=== PATIENT | male | born 1985 | race Caucasian/White ===

== ENCOUNTER 2022-03-18 14:09 | Outpatient (REF) | payer OTHER, SELFPAY ==
--- NOTE | ~2022-03-18 | US_ITS ---
EXAMINATION: US VENOUS ULTRASOUND WITH DOPPLER LOWER EXTREMITY, RIGHT CLINICAL INFORMATION: Acute embolism and thrombosis of the deep veins of the right leg COMPARISON: None TECHNIQUE: Ultrasound of the deep veins is performed from the hip to the calf with compression sonography and color and pulse Doppler assessment. Spectral analysis with color-flow imaging is performed. FINDINGS: There is normal venous compression and respiratory variation and augmented flow. The visualized common femoral vein, superficial femoral vein, profunda femoral vein, popliteal vein, and the trifurcation region shows no evidence of deep venous thrombosis. There is no significant popliteal fossa cyst. If the patient's symptoms persist, followup ultrasound in 5 days 7 days might be of value to exclude proximal propagation from a non-visualized calf vein. US/US venous duplex LE RT IMPRESSION: No DVT demonstrated in the right lower extremity.
== END 2022-03-18 14:10 | disposition home or self-care (01) ==
LOC: HO.US 14:09
PROVIDERS: PCP Family Medicine; Visit Provider Family Medicine
DX: I82.401 Acute embolism and thrombosis of unspecified deep veins of right lower extremity (principal)
CPT/HCPCS: 93971

== ENCOUNTER 2022-07-15 12:24 | Outpatient (REF) | payer OTHER, SELFPAY ==
[2022-07-15 17:01] LABS: Anion Gap 14 (12-20); Blood Urea Nitrogen 20 mg/dL (9-16); Calcium 9.6 mg/dL (8.4-10.2); Carbon Dioxide 28 mmol/L (22-29); Chloride 103 mmol/L (96-108); Cholesterol 111 mg/dL; Estimated Glomerular Filt Rate > 60; Glucose Random 87 mg/dL (60-115); HDL Cholesterol 28 mg/dL; LDL Cholesterol Calculated 51 mg/dl; Potassium 4.9 mmol/L (3.3-5.1); Sodium 140 mmol/L (135-145); Triglycerides 162 mg/dL
== END 2022-07-15 12:25 | disposition home or self-care (01) ==
LOC: HO.WFDLDS 12:24
PROVIDERS: Visit Provider Family Medicine
DX: Z00.00 Encounter for general adult medical examination without abnormal findings (principal)
CPT/HCPCS: 36415; 80048; 80061

== ENCOUNTER → 2022-08-06 14:09 | Outpatient (BNVA) | payer OTHER, SELFPAY | PROVIDERS: PCP Family Medicine; Visit Provider Nurse Practitioner Family ==

== ENCOUNTER 2022-09-10 16:44 | Outpatient (AMB) | payer OTHER, SELFPAY ==
--- NOTE | 2022-09-10 16:38 | A.OFFPC_ITS ---
Intake Visit Reasons: f/u HLD and labs Intake Note: Patient is following up on labs today. Allergies No Known Allergies Allergy (Verified 09/10/22 16:40) Tobacco use date assessed: 09/10/22 Dental Screening Dental Screen Date: 09/10/22 Did you have a dental visit in the last 12 months?: Yes Did you have a dental problem in the last 6 months where you did not have access to dental care?: No Was dental information given to patient?: No HPI f/u HLD and labs HPI Details 37 y/o male presents to f/u HLD and labs. Labs were drawn 07/15/22. Reviewed labs with pt. Triglycerides 162. TC 111. LDL 51. HDL low aat 28. He is on artovastatin 40mg daily. He reports he has not been exercising much. [facility] Medical History High cholesterol Tear of medial meniscus of right knee Surgical History History of hernia surgery [place] teeth removed Social History Housing: House Patient Tobacco Use Status: Never used Tobacco e-Cigarette/Vaping Use: Never Used Second Hand Smoke Exposure: No service: No Current occupational status: employed Current occupational exposures/hazards: No Cognitive needs: No Hearing needs: No Vision needs: No Questionnaire Thrive Questionnaire Date Thrive assessed: 04/09/22 DERIK-7 AMB Questionnaire DERIK-7 Date DERIK - 7 assessed: 04/09/22 Source: Developed by Drs. Florencio Jack, Mendy Blackwell, Zev Sweeney and colleagues, with an educational miguel a from [employer]. Review of Systems Const Denies chills, Denies fatigue, Denies fever(s), Denies headache(s) and Denies weakness ENT Denies dizziness and Denies headache(s) Card Denies dyspnea Resp Denies cough, Denies dyspnea, Denies wheezing and Denies other (shortness of breath) Musc Denies numbness and Denies tingling Neuro Denies dizziness, Denies headache(s), Denies numbness, Denies tingling and Denies weakness Psych Denies anxiety and Denies depression Endo Denies fatigue Aller/Immun Denies wheezing Physical exam (Primary Care) Tobacco/Smoking Status: Tobacco use Status Tobacco use date assessed 09/10/22 09/10/22 16:42 Patient Tobacco Use Status Never used Tobacco 09/10/22 16:42 e-Cigarette/Vaping Use Never Used 09/10/22 16:42 Thrive Assessment: Date of Thrive Assessment Date Thrive assessed 04/09/22 09/10/22 16:42 Telehealth Telehealth Location of provider rendering services: practice address Location of patient: address on file Patient Identification confirmed using: Name, : Yes Telehealth method: voice only Patient verbally consented to treatment: Yes Patient verbally consented to billing insurance company: Yes Patient informed of any privacy concerns related to visit: Yes Minutes spent on Phone/Video with Pt.: 5 Assessment and Plan Assessment & Plan (1) Hyperlipidemia: Code(s): E78.5 - Hyperlipidemia, unspecified Plan: LDL cholesterol much improved and his triglycerides have improved significantly as well though still above goal of less than 150 HDL has dropped considerably and is too low. He notes that he has had a significant decrease in exercise with the of his child. He will work at a diet low in saturated fats and cholesterol and will try to get more exercise regularly. He will decrease his atorvastatin from 40 mg daily to 20 mg daily Will repeat lipids prior to his next visit in about 3 months (2) Low HDL (under 40): Code(s): E78.6 - Lipoprotein deficiency Plan: As above Orders: Orders Basic Metabolic Panel Fasting Today E78.6 - Lipoprotein deficiency Lipid Panel Today E78.6 - Lipoprotein deficiency, Z00.00 - Encounter for general adult medical examination without abnormal findings Medications: Changed From atorvastatin 40 mg PO DAILY 90 days 90 tabs 3RF To atorvastatin 20 mg PO DAILY 90 days 90 tabs 3RF Coding Level of Care Code Tele Est Pt Level 2 (92707) Diagnoses Hyperlipidemia E78.5 Low HDL (under 40) E78.6
== END 2022-09-10 16:55 | disposition home or self-care (01) ==
LOC: HO.HMGFM 16:44
PROVIDERS: PCP Family Medicine; Visit Provider Family Medicine
DX: E78.5 Hyperlipidemia, unspecified (principal); E78.6 Lipoprotein deficiency
CPT/HCPCS: 99441

== ENCOUNTER 2022-09-17 15:15 | Outpatient (AMB) | payer OTHER, SELFPAY ==
--- NOTE | 2022-09-17 15:29 | A.OFFVIS_ITS ---
Intake Intake Visit Reasons: vasectomy Intake Note: Patient is present for Vasectomy Antibiotic Allergies: none Blood Thinners: None Allergies No Known Allergies Allergy (Verified 09/17/22 15:32) HPI HPI Comments History of Present Illness Details Jose G is a pleasant 37 year old male patient of Dr. Landa. He presents to the office today for - vasectomy procedure Vasectomy procedure The patient presents for vasectomy procedure.? He is currently He has fathered -?3 child, with a single partner The youngest child is - 2 months old His partner is aware and permissive for a vasectomy Current form of control is none. 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 [facility] Medical History High cholesterol Tear of medial meniscus of right knee Surgical History History of hernia surgery [place] teeth removed Social History Housing: House Patient Tobacco Use Status: Never used Tobacco e-Cigarette/Vaping Use: Never Used Second Hand Smoke Exposure: No service: No Current occupational status: employed Current occupational exposures/hazards: No Cognitive needs: No Hearing needs: No Vision needs: No Review of Systems Const Denies chills and Denies fever(s) Card Reports no additional complaints and Denies syncope Resp Denies cough GI Denies abdominal pain and Denies heartburn Reports as per HPI and Denies change in libido Neuro Denies syncope Psych Denies change in libido Endo Denies change in libido Physical Exam Const General: cooperative, healthy appearing, comfortable and no acute distress Orientation/consciousness: patient oriented x3 HEENT Face and sinus: Yes normal facial exam Mouth: moist mucous membranes Neck Neck: Yes normal visual inspection, Yes full ROM and Yes trachea midline Chest Chest palpation & inspection: normal inspection of the chest Resp Effort & Inspection: normal respiratory effort, able to speak in complete sentences and no respiratory distress GI Inspection: Yes normal to inspection Back/Spine/Pelvis Cervical Spine: normal cervical lordosis Thoracic/Lumbar Spine: thoracic and lumbar spine normal to inspection Skin General skin exam: no rashes or lesions noted Neuro General: patient oriented x3, gait normal, tone normal and moves all extremities Extrem General: Yes normal to inspection and Yes capillary refill normal Office Procedures Vasectomy Details: Preoperative diagnosis: Anxiety regarding Postoperative diagnosis: Anxiety regarding unplanned Procedure: Bilateral vasectomy Informed consent had been completed. Preoperative and postoperative instructions were provided to the patient. The patient has transportation to home identified at the completion of the procedure. Anti-anxiolytic prescription medication had been taken after consent verification and all questions answered. Tylenol with Codeine pain medication was also provided. The penis was elevated using a rubber band that was attached to the patient's shirt. Both vasa were palpated through the skin using a 3 finger technique and the penoscrotal junction was prepped with Betadine. After Betadine application the left vas was elevated using a 3 finger grasping technique. 1% lidocaine was used to create a subdermal bubble. Approximately 2 minutes were allowed to for local anesthetic uptake. Further anesthetic was then advanced using the 25-gauge needle along the vasa in a proximal fashion. Using the sharp spreading instrument the scrotum was spread longitudinally in line with the vasa. The vasa was elevated from the scrotum using a ring clamp. Care was taken to elevate the superior portion of the vas. Using the sharp spreading instrument the vasal sheath was removed from the covering of this segment of the vas. A fresh knife blade was used to partially divide the vasal sheath and to strip the vasal sheath from the vasa. The vasa was grasped with an Addson forcep and elevated from the incision. The ring clamp was placed so it grasped the elevated vas. The vasal sheath was dissected from the vaas in a proximal and distal fashion. This allowed the blood vessels of the vasa to retract from the vasa. Using the battery-powered cautery a partial division was made in the proximal vas. The battery-powered cautery was used to cauterize the proximal end of the vas. This was then cut and allowed to retract into the vasal sheath. A clip was placed on the vasal sheath to create a fascial interposition. The distal portion of the vas was then cut in order to obtain a segment of vasa. The vasa were allowed to retract back into the scrotum. A small snap was then used to approximate the skin edges. A similar procedure was repeated on the right side. He tolerated the procedure well. Triple antibiotic was applied. A gauze was applied. An ice pack was applied to assist with minimizing swelling. Postoperative instructions were confirmed. He understands the need to continue to use control methods. A semen sample should be brought for inspection under the microscope in 10-12 weeks. CPT 46408 Vasectomy performed by: Giovany Melo [id number] - Vasectomy Coding Level of Care Code Procedure Only Diagnoses CPT Codes Office Procedure - CPT: 98290 - Vasectomy ([id number])
== END 2022-09-17 16:11 | disposition home or self-care (01) ==
PROVIDERS: PCP Family Medicine; Visit Provider Urology
DX: Z30.2 Encounter for sterilization (principal)
CPT/HCPCS: 55250

== ENCOUNTER → 2022-09-17 15:15 | Outpatient (BNVA) | payer OTHER, SELFPAY | PROVIDERS: PCP Family Medicine; Visit Provider Urology | DX: F41.8 Other specified anxiety disorders (principal); Z30.2 Encounter for sterilization; Z30.09 Encounter for other general counseling and advice on contraception | CPT/HCPCS: 55250 ==

== ENCOUNTER 2022-12-12 13:30 | Outpatient (AMB) | payer OTHER, SELFPAY ==
--- NOTE | 2022-12-12 13:42 | MHC.OFFVIS ---
Intake Intake Visit Reasons: 12w/seman analysis Intake Note: Patient is present for Vasectomy Follow up Semen Analysis Antibiotic Allergies: none Blood Thinners: None Allergies No Known Allergies Allergy (Verified 12/12/22 13:42) HPI HPI Comments History of Present Illness Details Jose G is a pleasant 37 year old male patient of Dr. Landa. He presents to the office today for - vasectomy follow-up Minimal issues No pain No sperm seen on high-power field evaluation Vasectomy procedure The patient presents for vasectomy procedure.? He is currently He has fathered -?3 child, with a single partner The youngest child is - 2 months old His partner is aware and permissive for a vasectomy Current form of control is none. 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 [facility] Medical History High cholesterol Tear of medial meniscus of right knee Surgical History [place] teeth removed History of hernia surgery Social History Housing: House Patient Tobacco Use Status: Never used Tobacco e-Cigarette/Vaping Use: Never Used Second Hand Smoke Exposure: No service: No Current occupational status: employed Current occupational exposures/hazards: No Cognitive needs: No Hearing needs: No Vision needs: No Review of Systems Const Denies chills and Denies fever(s) Card Reports no additional complaints and Denies syncope Resp Denies cough GI Denies abdominal pain and Denies heartburn Reports as per HPI and Denies change in libido Neuro Denies syncope Psych Denies change in libido Endo Denies change in libido Physical Exam Const General: cooperative, healthy appearing, comfortable and no acute distress Orientation/consciousness: patient oriented x3 HEENT Face and sinus: Yes normal facial exam Mouth: moist mucous membranes Neck Neck: Yes normal visual inspection, Yes full ROM and Yes trachea midline Chest Chest palpation & inspection: normal inspection of the chest Resp Effort & Inspection: normal respiratory effort, able to speak in complete sentences and no respiratory distress GI Inspection: Yes normal to inspection Back/Spine/Pelvis Cervical Spine: normal cervical lordosis Thoracic/Lumbar Spine: thoracic and lumbar spine normal to inspection Skin General skin exam: no rashes or lesions noted Neuro General: patient oriented x3, gait normal, tone normal and moves all extremities Extrem General: Yes normal to inspection and Yes capillary refill normal Assessment & Plan Assessment & Plan (1) Anxiety about health: Code(s): F41.8 - Other specified anxiety disorders Plan PRN Patient Instructions: Imaging studies, laboratory and physical exam results were discussed and reviewed in detail. No major barriers to patient understanding were identified. An opportunity to ask questions regarding the treatment plan was provided. All questions were answered. The patient expressed understanding and agreement with the above treatment plan. The patient is aware they should contact our office by phone for worsening of their current condition or the appearance of new urologic symptoms. Compliance is encouraged with any medications and followup testing that is ordered. It is a privilege to participate in the urologic care of your patient. If you have any questions or concerns regarding treatment for the above conditions, or other urologic issues, please do not hesitate to contact me. The office telephone contact is [phone]. This note is constructed using voice recognition software. While every effort has been made to ensure accuracy biomedical equipment support specialist errors may have been included. Yours sincerely, Dr Giovany Melo MD, [facility] - Urology Providers of Expert, Compassionate Care for the Genitourinary System Coding Level of Care Code Est Pt Level 3 (51538) Diagnoses Anxiety about health F41.8
== END 2022-12-12 13:55 | disposition home or self-care (01) ==
PROVIDERS: PCP Family Medicine; Visit Provider Urology
DX: F41.8 Other specified anxiety disorders (principal)
CPT/HCPCS: 99024

== ENCOUNTER → 2022-12-12 13:30 | Outpatient (BNVA) | payer OTHER, SELFPAY | PROVIDERS: PCP Family Medicine; Visit Provider Urology ==

== ENCOUNTER 2022-12-18 11:18 | Outpatient (REF) | payer OTHER, SELFPAY ==
[2022-12-18 14:58] LABS: TSH reflex Free T4 1.56 uIU/mL (0.32-4.0)
[2022-12-18 15:11] LABS: Anion Gap 13 (12-20)
[2022-12-18 15:16] LABS: Alanine Aminotransferase 64 U/L (0-40); Albumin Level 4.5 g/dL (3.5-5.0); Alkaline Phosphatase 75 U/L (39-117); Aspartate Amino Transferase 33 U/L (5-37); Bilirubin Total 0.8 mg/dL (0.0-1.0); Blood Urea Nitrogen 19 mg/dL (9-16); Calcium 9.9 mg/dL (8.4-10.2); Carbon Dioxide 29 mmol/L (22-29); Chloride 103 mmol/L (96-108); Cholesterol 138 mg/dL (<200); Estimated Glomerular Filt Rate > 60; Glucose Fasting 80 mg/dL (60-99); HDL Cholesterol 31 mg/dL (>40); LDL Cholesterol Calculated 53 mg/dL (<100); Potassium 4.9 mmol/L (3.3-5.1); Sodium 140 mmol/L (135-145); Total Protein 7.5 g/dL (6.5-8.0); Triglycerides 272 mg/dL (<150)
[2022-12-19 07:43] LABS: Syphilis Screen Nonreactive (Nonreactive)
[2022-12-19 08:19] LABS: HBc Num1 0.07 S/CO (0.00-0.79); HBsAGNum1 0.42 S/CO (0.00-0.99); HIV AB/AG Nonreactive (Nonreactive); HIV Num 1 0.05 S/CO (0.00-0.99); Hepatitis B Core Antibody Nonreactive (Nonreactive); Hepatitis B Surface Antigen Negative (Negative); ~HepC Num1 0.03 S/CO (0.00-0.79); ~Hepatitis B Surface Antibody REACTIVE (Nonreactive); ~Hepatitis C Antibody Nonreactive (Nonreactive)
== END 2022-12-18 11:19 | disposition home or self-care (01) ==
LOC: HO.WFDLDS 11:18
PROVIDERS: Visit Provider Family Medicine
DX: Z00.00 Encounter for general adult medical examination without abnormal findings (principal); Z11.4 Encounter for screening for human immunodeficiency virus [HIV]; Z20.2 Contact with and (suspected) exposure to infections with a predominantly sexual mode of transmission
CPT/HCPCS: 36415; 80053; 80061; 84443; 86704; 86706; 86780; 86803; 87340; 87389

== ENCOUNTER 2022-12-22 10:40 | Outpatient (AMB) | payer OTHER, SELFPAY ==
[2022-12-22 10:44] VITALS: BP 122/82; PULSE 70; O2SAT 98; BMI 29.1
--- NOTE | 2022-12-22 10:44 | A.OFFPC_ITS ---
Vital Signs 12/22/22 10:44 Height 5 ft 10 in Weight 203 lb BMI 29.1 BP 122/82 Blood Pressure Location Lt brachial Position Sitting Pulse 70 Pulse Source Pulse Oximeter Pulse Oximetry (%) 98 Oxygen Delivery Method Room Air Intake Visit Reasons: f/u HLD and low HDL Intake Note: Patient is to follow up on cholesterol bloodwork. Allergies No Known Allergies Allergy (Verified 12/22/22 10:46) Tobacco use date assessed: 12/22/22 Dental Screening Dental Screen Date: 12/22/22 Did you have a dental visit in the last 12 months?: Yes Did you have a dental problem in the last 6 months where you did not have access to dental care?: No Was dental information given to patient?: Patient has dentist HPI f/u HLD and low HDL HPI Details 37 y/o male presents to f/u HLD and low HDL. Labs were drawn 12/18/22. Reviewed labs with pt. Triglycerides 272. TC 138. LDL 53. HDL low at 31. He is on artovastatin 20mg daily. 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 Current occupational exposures/hazards: No Cognitive needs: No Hearing needs: No Vision needs: No Questionnaire Thrive Questionnaire Date Thrive assessed: 04/09/22 DERIK-7 AMB Questionnaire DERIK-7 Date DERIK - 7 assessed: 04/09/22 Source: Developed by Drs. Florencio Jack, Mendy Blackwell, Zev Sweeney and colleagues, with an educational miguel a from [employer]. Review of Systems Const Denies chills, Denies fatigue, Denies fever(s), Denies headache(s) and Denies weakness ENT Denies dizziness and Denies headache(s) Card Denies chest pain, Denies lightheadedness, Denies dyspnea and Denies other (Palpitations) Resp Denies cough, Denies dyspnea, Denies wheezing and Denies other ( shortness of breath) Musc Denies numbness and Denies tingling Neuro Denies dizziness, Denies headache(s), Denies numbness, Denies tingling, Denies paresthesias and Denies weakness Psych Denies anxiety and Denies depression Endo Denies fatigue Aller/Immun Denies wheezing Physical exam (Primary Care) Vital Signs: Last Vital Signs Pulse 70 12/22/22 10:44 BP 122/82 12/22/22 10:44 Pulse Ox 98 12/22/22 10:44 Oxygen Delivery Method Room Air 12/22/22 10:44 BMI result Body Mass Index 29.1 Tobacco/Smoking Status: Tobacco use Status Tobacco use date assessed 12/22/22 12/22/22 10:51 Patient Tobacco Use Status Never used Tobacco 12/22/22 10:51 e-Cigarette/Vaping Use Never Used 12/22/22 10:51 Thrive Assessment: Date of Thrive Assessment Date Thrive assessed 04/09/22 12/22/22 10:51 Const General: no acute distress and well developed Nutritional Appearance: well nourished Orientation/consciousness: patient oriented x3 HENMT Head: Yes normocephalic and Yes atraumatic Eyes General: appearance normal, both eyes and all related structures Pupils: Equal, round and reactive pupils present EOM: EOMs intact bilaterally Resp Effort & Inspection: normal respiratory effort Auscultation: clear to auscultation bilaterally Cardio Rate: regular rate Rhythm: regular rhythm Heart sounds: S1 normal heart sound present, S2 normal heart sound present, no gallops, no murmurs and no rubs Neuro General: patient oriented x3 and gait normal Cranial nerves: Yes Equal, round and reactive pupils present Psych Affect: normal affect Assessment and Plan Assessment & Plan (1) Hyperlipidemia: Code(s): E78.5 - Hyperlipidemia, unspecified Plan: LDL?cholesterol?controlled?but?HDL?is?too?low?and?his?triglycerides?are?too?high . Try?switching?from?atorvastatin?to?rosuvastatin Follow-up?on?this?in?about?3?months (2) Low HDL (under 40): Code(s): E78.6 - Lipoprotein deficiency Plan: Also?encouraged?increase?in?exercise?and?he?is?working?on?this. (3) Immunization counseling: Code(s): Z71.85 - Encounter for immunization safety counseling Plan: Due?for?flu?shot Ordered Medications: New rosuvastatin 10 mg PO DAILY 30 tabs 2RF 30 days Coding Level of Care Code Est Pt Level 4 (45039) Diagnoses Hyperlipidemia E78.5 Low HDL (under 40) E78.6 Immunization counseling Z71.85
--- NOTE | 2022-12-23 08:22 | A.OFFPC_ITS ---
Vital Signs 12/22/22 10:44 Height 5 ft 10 in Weight 203 lb BMI 29.1 BP 122/82 Blood Pressure Location Lt brachial Position Sitting Pulse 70 Pulse Source Pulse Oximeter Pulse Oximetry (%) 98 Oxygen Delivery Method Room Air Intake Visit Reasons: f/u HLD and low HDL Allergies No Known Allergies Allergy (Verified 12/22/22 10:46) Tobacco use date assessed: 12/22/22 [facility] Medical History High cholesterol Tear of medial meniscus of right knee Surgical History [place] teeth removed History of hernia surgery Social History Housing: House Patient Tobacco Use Status: Never used Tobacco e-Cigarette/Vaping Use: Never Used Second Hand Smoke Exposure: No service: No Current occupational status: employed 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 Current occupational exposures/hazards: No Cognitive needs: No Hearing needs: No Vision needs: No Questionnaire Thrive Questionnaire Date Thrive assessed: 04/09/22 DERIK-7 AMB Questionnaire DERIK-7 Date DERIK - 7 assessed: 04/09/22 Source: Developed by Drs. Florencio Jack, Mendy Blackwell, Zev Sweeney and colleagues, with an educational miguel a from [employer]. Physical exam (Primary Care) Vital Signs: Last Vital Signs Pulse 70 12/22/22 10:44 BP 122/82 12/22/22 10:44 Pulse Ox 98 12/22/22 10:44 Oxygen Delivery Method Room Air 12/22/22 10:44 BMI result Body Mass Index 29.1 Tobacco/Smoking Status: Tobacco use Status Tobacco use date assessed 12/22/22 12/22/22 10:51 Patient Tobacco Use Status Never used Tobacco 12/22/22 10:51 e-Cigarette/Vaping Use Never Used 12/22/22 10:51 Thrive Assessment: Date of Thrive Assessment Date Thrive assessed 04/09/22 12/22/22 10:51 Office Procedures Flu Questionnaire Does the patient have a severe egg allergy?: No Does the patient have severe life threatening allergies?: No Does the patient have a fever or illness today?: No Has the patient ever had Guillain-[place] Syndrome?: No Has the patient ever had any past reaction to a flu shot?: No Immunizations flu vacc [id number] 6mos up(PF) 60 mcg(15 mcgx4)/0.5 mL IM syringe Performing Provider: Long Landa MD Performing Location: [facility] Administered by: Ro Alejo RN on 12/22/22 12:25 Dose Route Admin Location Dispensed Lot Number Expiration Date NDC Ad Operations Specialist 0.5 mL IM Left Deltoid 0.5 mL [id number] 08/30/23 19940-706-35 [employer] VIS Given Date VIS Provided VIS Publication Date 12/22/22 Single Vaccine 20 Eligibility Eligibility Date Funding Source Not [facility] Eligible 12/22/22 Private Assessment and Plan Assessment & Plan (1) Hyperlipidemia: Code(s): E78.5 - Hyperlipidemia, unspecified (2) Low HDL (under 40): Code(s): E78.6 - Lipoprotein deficiency (3) Immunization counseling: Code(s): Z71.85 - Encounter for immunization safety counseling Orders: Orders Comprehensive [place]. Panel Fast 12/22/22 E78.1 - Pure hyperglyceridemia, Z00.00 - Encounter for general adult medical examination without abnormal findings Lipid Panel 12/22/22 E78.1 - Pure hyperglyceridemia, Z00.00 - Encounter for general adult medical examination without abnormal findings Influenza [id number] Immunization 12/22/22 Z23 - Encounter for immunization Medications: New rosuvastatin 10 mg PO DAILY 30 tabs 2RF 30 days Coding Diagnoses Hyperlipidemia E78.5 Low HDL (under 40) E78.6 Immunization counseling Z71.85
== END 2022-12-22 11:14 | disposition home or self-care (01) ==
PROVIDERS: PCP Family Medicine; Visit Provider Family Medicine
DX: Z23 Encounter for immunization (principal)
CPT/HCPCS: 90471; 90686; 99214

== ENCOUNTER 2023-08-20 10:30 | Outpatient (REF) | payer OTHER, SELFPAY ==
[2023-08-20 12:22] LABS: Alanine Aminotransferase 46 U/L (0-40); Albumin Level 4.5 g/dL (3.5-5.0); Alkaline Phosphatase 73 U/L (39-117); Anion Gap 11 (12-20); Aspartate Amino Transferase 24 U/L (5-37); Bilirubin Total 0.8 mg/dL (0.0-1.0); Blood Urea Nitrogen 14 mg/dL (9-16); Calcium 9.4 mg/dL (8.4-10.2); Carbon Dioxide 27 mmol/L (22-29); Chloride 107 mmol/L (96-108); Cholesterol 120 mg/dL (<200); Estimated Glomerular Filt Rate > 60; Glucose Fasting 94 mg/dL (60-99); HDL Cholesterol 30 mg/dL (>40); LDL Cholesterol Calculated 76 mg/dL (<100); Potassium 4.2 mmol/L (3.3-5.1); Sodium 141 mmol/L (135-145); Total Protein 7.1 g/dL (6.5-8.0); Triglycerides 71 mg/dL (<150)
== END 2023-08-20 10:31 | disposition home or self-care (01) ==
LOC: HO.WFDLDS 10:30
PROVIDERS: Visit Provider Family Medicine
DX: Z00.00 Encounter for general adult medical examination without abnormal findings (principal); E78.6 Lipoprotein deficiency; E78.1 Pure hyperglyceridemia
CPT/HCPCS: 36415; 80053; 80061

== ENCOUNTER 2024-12-26 13:06 | Outpatient (AMB) | payer OTHER, SELFPAY ==
--- NOTE | 2024-12-26 13:12 | A.OFFPC_ITS ---
Vital Signs 12/26/24 13:15 Height 5 ft 10 in Weight 204 lb 2 oz BMI 29.3 BP 138/80 Blood Pressure Location Rt brachial Position Sitting Respiration 14 Pulse 76 Pulse Source Pulse Oximeter Temp 97.3 F Temp Source Oral Pulse Oximetry (%) 98 Oxygen Delivery Method Room Air Intake Visit Reasons: Annual Physical Intake Note: CPE. Patient wants to discuss family history. Medical Logistics Specialist Required: No Allergies No Known Allergies Allergy (Verified 12/26/24 13:43) Medication List - Last Reconciled 12/26/24 by Kassidy Garcia, RANCH COOK- cholecalciferol (vitamin D3) 50 mcg PO DAILY telzebqp-bja-mfvga-vit K-lycop 400-20-300 mcg tabs PO rosuvastatin 10 mg PO DAILY 30 days Tobacco use date assessed: 12/26/24 Dental Screening Dental Screen Date: 12/26/24 Did you have a dental visit in the last 12 months?: Yes Did you have a dental problem in the last 6 months where you did not have access to dental care?: No Was dental information given to patient?: Patient has dentist HPI HPI Comments History of Present Illness Details 39 y/o M wiht HLD, Vit D def, SAXMAN, fhx c olon ca (PGM), Fhx of aortic aneurysm (Dad), hx of provoked DVT RLE, chronic constipation s/p vasectomy Past Surgical History - Right knee meniscus cleanup (December 2021) - Vasectomy - [place] teeth removal - Hernia repair Family History - Father: Aortic aneurysm (hereditary, l ocated in the heart). - Paternal grandmother: Colon cancer. Social History - Employment: Works at [employer]. - Family: Has three children, all are we ll. - Substance Use: Denies smoking. - Exercise: Does not have a formal exerc ise routine; was counseled on achieving 30 minutes of daily activity to improve HDL cholesterol. - Diet: Takes Metamucil for constipation . Health Maintenance: Tdap 2024 Flu 12/26/24 Specialists Derm 09/2024 History of Present Illness The patient is a 39-year-old male presenting for a complete physical exam & to est care Previous PCP Dr Argueta records reviewed; last visit 2022 Hyperlipidemia: - The patient has a history of hyperlipi demia and is currently taking rosuvastatin. - A review of labs from 2022 and 2023 sh ows improvement with medication. His triglycerides decreased from 272 to 71, and total cholesterol from 138 to 120. - His LDL was 53 in 2022 and 76 in 2023, both within the goal range. - His HDL, however, remains low, measuri ng 31 in 2022 and 30 in 2023. History of Deep Vein Thrombosis, RLE: - The patient had a provoked deep vein t hrombosis (DVT) in his right leg in December 2021. - The clot occurred shortly after a meni scus cleanup surgery, while he was immobile and resting with his leg elevated. - He was treated with a blood thinner fo r six months and has had no subsequent issues. History of recurrent otitis media: - The patient experienced a period of co nstant ear infections, which he believes contributed to decreased hearing in his left ear. - The infections persisted from March to April of one year, and he had difficulty hearing during that time. - The condition resolved during the summ er, and his hearing is no longer bothering him. Constipation: - The patient reports a long-standing hi story of not being regular and has been taking Metamucil for this issue for many years, starting around 2005. - He reports normal bowel and urinary fu nction while taking Metamucil. Family History of Aortic Aneurysm: - The patient's father has a hereditary aortic aneurysm - His father's condition has been monito red for years. Vitamin D deficiency: - The patient has a past medical history of vitamin D deficiency and was previously taking supplements. - He is no longer taking a vitamin D sup plement but does take a daily multivitamin. Past Medical History - Hyperlipidemia, managed with rosuvasta tin. - Vitamin D deficiency, previously on duncan pplements, now takes a multivitamin. - History of a provoked deep vein thromb osis (DVT) in the right leg in December 2021, post-meniscus surgery, treated with a blood thinner for 6 months. - History of recurrent otitis media with associated temporary hearing loss, which has since resolved. - Chronic constipation managed with [place] mucil. - No known medication allergies. Health Maintenance - The patient presented for a complete p hysical exam. - Influenza vaccine administered during the visit. - Sees a ceramics teacher regularly, with t he last visit in September or October; several benign lesions were removed, and pathology was negative for cancer. - Obtains eye exams at [facility]; due for a n updated exam. - Counseled on the importance of 30 victoria librado of daily exercise to improve low HDL cholesterol levels. Review of Systems - General: Reports being well since his last visit three years ago, with the exception of a few colds and ear infections. - HEENT: Reports a history of recurrent ear infections and decreased hearing in the left ear, which has resolved. Denies current hearing issues. Denies any problems with his eyes or vision. - Gastrointestinal: Reports chronic cons tipation managed with Metamucil. Reports normal bowel and bladder function otherwise. - Musculoskeletal: Denies pain in the hi p or low back on movement. Physical Exam General: Well developed, well nourished, in no acute distress. Appears stated age. Head: Normocephalic, atraumatic. Eyes: Pupils are equal, round and reactive to light and accommodation. Conjunctivae are clear. Scleras nonicteric bilat. Vision grossly normal. Ears: TMs clear AU, EACS WNL. Decreased hearing in the left ear, referred to audiology and ENT. Nose: Patent, without discharge. Neck: No carotid bruit bilat. Supple, no adenopathy or thyromegaly. Breast: Edu on SBE Lungs: Clear to auscultation bilaterally. No rales, rhonchi or wheeze noted. Good air flow in all baxter. Heart: Regular rate and rhythm. No murmurs, click, rubs or gallops are noted. Abdomen: Bowel sounds present in all quadrants. The abdomen is soft, nontender, with no masses or organomegaly noted. No hernias are noted. : Deferred. Reviewed BARI & recommendations Pulses: Peripheral pulses are equal and palpable bilaterally. Extremities: No clubbing, cyanosis nor edema is noted. History of DVT in the right leg, treated with blood thinners for six months. Neurologic: Gait and station normal. Cranial Nerves 2-12 intact. Motor strength grossly symmetrical and intact. No sensory loss. Balance normal. Skin: No rashes, ulcers, or lesions noted. Turgor is good. Skin color is good. Hair and nails are without abnormalities. Psych: Normal eye contact, affect and mood appropriate, and normal interactions. Patient is alert and appropriate to context. Results - Lab results from 2022 were reviewed: T riglycerides 272, Total Cholesterol 138, LDL 53, HDL 31. - Lab results from 2023 were reviewed: T riglycerides 71, Total Cholesterol 120, LDL 76, HDL 30. Medical Decision Making The patient is a 39-year-old male presenting for a routine complete physical exam. His past medical history is significant for hyperlipidemia, which appears well-managed on rosuvastatin based on a review of prior labs showing a s ignificant reduction in triglycerides and LDL cholesterol. However, his HDL remains low, and this was addressed with lifestyle modification counseling, specifically emphasizing the importance of daily exercise, as medication is less effective for this component. Given the patient's paternal history of a hereditary aortic aneurysm, screening is warranted. An echocardiogram will be ordered to establish a baseline and assess the aorta within the heart. Routine health maintenance includes an influenza vaccine administered today and updated lab work. A follow-up is planned in 6 months to monitor his lipid panel. Plan 1. Hyperlipidemia - Continue taking rosuvastatin. - Current labs will be drawn today, and the rosuvastatin prescription will be refilled pending results. - Patient was counseled that low HDL is primarily addressed with exercise, and he was encouraged to get 30 minutes of daily physical activity. - Follow up in 6 months for a cholestero l check, with labs to be drawn one week prior to the appointment. 2. Preventative Care - Administer influenza vaccine today. - Order baseline labs today. 3. Family History Of Aortic Aneurysm - An order for an echocardiogram will be placed for screening, given the paternal family history. - The patient will receive a call from [facility] to schedule the procedure. - A follow-up appointment will be schedu led to discuss the results. 4. Constipation - Advised the patient to continue taking Metamucil, as it is beneficial for constipation and also helps with blood sugar and cholesterol levels. Patient Instructions - You will receive your flu shot today. - After your flu shot, please go to the lab to have your blood drawn today. - You will get a call from the [facility] to schedule your echocardiogram, which is a test to look at your heart. - Stop at the front attendant to make a tamaro w-up appointment for six months from now to check your cholesterol. - Please get your lab work done one week before your next six-month appointment. - Try to get 30 minutes of exercise each day to help raise your good cholesterol (HDL). This does not have to be all at once and can be broken up throughout the day. - Continue taking your rosuvastatin for your cholesterol. - Continue taking Metamucil for regulari ty, as it is also good for your cholesterol and blood sugar. Consent Patient was informed and verbally consented to the use of an ambient scribe for clinic note documentation during this visit. An additional 20 minutes was spent addressing the problem(s) noted at todays vi sit. This includes time spent before the visit reviewing the chart, time spent during the visit, and time spent after the visit on documentation reviewing laboratory results, diagnostic imaging, medications, performing a medically necessary evaluation, counseling on diagnoses, care coordination, ordering appropriate tests, ordering appropriate medications, review of tests performed by other providers, reporting test results with the patient, communication with other healthcare providers. 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 Current occupational exposures/hazards: No Cognitive needs: No Hearing needs: No Vision needs: No Questionnaire PHQ-9 Over the last 2 weeks, how often have you been bothered by any of the following problems? 1. Little interest or pleasure in doing things: not at all 2. Feeling down, depressed, or hopeless: not at all 3. Trouble falling or staying asleep, or sleeping too much: not at all 4. Feeling tired or having little energy: not at all 5. Poor appetite or overeating: not at all 6. Feeling bad about yourself - or that you are a failure or have let yourself or your family down: not at all 7. Trouble concentrating on things, such as reading the newspaper or watching television: not at all 8. Moving or speaking so slowly that other people could have noticed. Or the opposite - being so fidgety or restless that you have been moving around a lot more than usual: not at all 9. Thoughts that you would be better off or of hurting yourself in some way: not at all Total score: 0 Depression Screening Interpretation: Negative Depression Screening Done: Yes 36346 - PHQ-9 Billing: Yes Source: Developed by Drs. Florencio Jack, Mendy Blackwell, Zev Sweeney and colleagues, with an educational miguel a from [employer]. Thrive Questionnaire Date Thrive assessed: 12/26/24 I am a: Patient What is your living situation today?: I have a steady place to live Within the past 12 months, did the food you bought not last and you didn't have the money to get more?: Never true Within the past 12 months, did you worry whether your food would run out before you got money to buy more?: Never true Do you have trouble paying for medicines?: No Do you have trouble getting transportation to medical appointments?: No Do you have trouble paying your heating and electricity bill?: No Do you have trouble taking care of your child, family member or friend?: No Do you have trouble with day-to-day activities such as bathing, preparing meals, shopping, managing finances, etc.?: No Are you currently unemployed and looking for a job?: No Are you interested in more education?: No Please select the resources that you would like help with: None Currently or been in a relationship where the following occur: No concerns reported THRIVE Score: 0 AUDIT C Alcohol Use Questionnaire (AUDIT-C) 1. How often do you have a drink containing alcohol?: 2-4 times a month 2. How many drinks containing alcohol do you have on a typical day when you are drinking?: 3 or 4 3. How often do you have six or more drinks on one occasion?: Less than monthly Total Score: 4 Score Reviewed/Action Taken: Yes DERIK-7 AMB Questionnaire DERIK-7 Date DERIK - 7 assessed: 12/26/24 Feeling nervous, anxious, or on edge: 0 = Not at all Not being able to stop or control worryin = Not at all Worrying too much about different things: 0 = Not at all Trouble relaxin = Not at all Being so restless that it is hard to sit still: 0 = Not at all Becoming easily annoyed or irritable: 0 = Not at all Feeling afraid as if something awful might happen: 0 = Not at all Total DERIK-7 score (0-4 normal; 5-9 mild; 10-14 moderate; 15-21 severe): 0 Source: Developed by Drs. Florencio Jack, Mendy Blackwell, Zev Sweeney and colleagues, with an educational miguel a from [employer]. DERIK-7 Assessment Billing DERIK-7 Assessment Tool: DERIK-7 Assessment 06087 Physical exam (Primary Care) Vital Signs: Last Vital Signs Temp 97.3 F 12/26/24 13:15 Pulse 76 12/26/24 13:15 Resp 14 12/26/24 13:15 BP 138/80 12/26/24 13:15 Pulse Ox 98 12/26/24 13:15 Oxygen Delivery Method Room Air 12/26/24 13:15 BMI result Body Mass Index 29.3 Tobacco/Smoking Status: Tobacco use Status Tobacco use date assessed 12/26/24 12/26/24 13:17 Patient Tobacco Use Status Never used Tobacco 12/26/24 13:17 e-Cigarette/Vaping Use Never Used 12/26/24 13:17 PHQ-9: PHQ-9 Score PHQ-9: Total score 0 12/26/24 13:43 Depression Screening Interpretation: Negative Thrive Assessment: Date of Thrive Assessment Date Thrive assessed 12/26/24 12/26/24 13:17 Currently or been in a relationship where the following occur: No concerns reported Coding Level of Care Code New Pt Level 3 (98686) New Pt Prev Care 18-39yr(88291 Diagnoses Adult general medical exam Z00.00 Laboratory exam ordered as part of routine general medical examination Z00.00 Mixed hyperlipidemia E78.2 Hyperlipidemia type: mixed hyperlipidemia Deep vein thrombosis (DVT) of right lower extremity, unspecified chronicity, unspecified vein I82.401 Affected thrombotic vein of extremity: unspecified vein of extremity Chronicity: unspecified Family history of aortic aneurysm Z82.49 Influenza vaccination administered at current visit Z23 Chronic constipation K59.09 Family history of colon cancer Z80.0 Encounter to establish care Z76.89 Additional Codes DERIK-7 Assessment Billing - DERIK-7 Assessment Tool: DERIK-7 Assessment 00095 ([id number]) PHQ-9 - 25822 - PHQ-9 Billing: Yes ([id number]) Assessment & Plan Assessment & Plan (1) Adult general medical exam: Onset Date: ~12/26/24 Code(s): Z00.00 - Encounter for general adult medical examination without abnormal findings Category: Medical (2) Laboratory exam ordered as part of routine general medical examination: Code(s): Z00.00 - Encounter for general adult medical examination without abnormal findings Category: Medical (3) Hyperlipidemia: Code(s): E78.5 - Hyperlipidemia, unspecified Category: Medical Qualifiers: Hyperlipidemia type: mixed hyperlipidemia Qualified Code(s): E78.2 - Mixed hyperlipidemia (4) Right leg DVT: Onset Date: ~2021 Comment: 2021 provoked after knee surgery on anti-coag x 6 mo Code(s): I82.401 - Acute embolism and thrombosis of unspecified deep veins of right lower extremity Category: Medical Qualifiers: Affected thrombotic vein of extremity: unspecified vein of extremity Chronicity: unspecified Qualified Code(s): I82.401 - Acute embolism and thrombosis of unspecified deep veins of right lower extremity (5) Family history of aortic aneurysm: Comment: dad Code(s): Z82.49 - Family history of ischemic heart disease and other diseases of the circulatory system Category: Medical (6) Influenza vaccination administered at current visit: Onset Date: ~12/26/24 Code(s): Z23 - Encounter for immunization Category: Medical (7) Chronic constipation: Code(s): K59.09 - Other constipation Category: Medical (8) Family history of colon cancer: Comment: Paternal GM Code(s): Z80.0 - Family history of malignant neoplasm of digestive organs Category: Medical (9) Encounter to establish care: Code(s): Z76.89 - Persons encountering health services in other specified circumstances Plan . Orders: Orders Complete Blood Count no Diff Today E78.5 - Hyperlipidemia, unspecified, Z00.00 - Encounter for general adult medical examination without abnormal findings Comprehensive [place]. Panel Fast Today E78.5 - Hyperlipidemia, unspecified, Z00.00 - Encounter for general adult medical examination without abnormal findings Lipid Panel Today E78.5 - Hyperlipidemia, unspecified, Z00.00 - Encounter for general adult medical examination without abnormal findings Microalbumin, Random (w Creat) Today E78.5 - Hyperlipidemia, unspecified, Z00. 00 - Encounter for general adult medical examination without abnormal findings TSH reflex Free T4 Today E78.5 - Hyperlipidemia, unspecified, Z00.00 - Encounter for general adult medical examination without abnormal findings CA echo transthoracic complete Today E78.5 - Hyperlipidemia, unspecified, Z82.49 - Family history of ischemic heart disease and other diseases of the circulatory system Comprehensive [place]. Panel Fast 6 Months E78.5 - Hyperlipidemia, unspecified Vitamin D 25-OH Total 6 Months E78.5 - Hyperlipidemia, unspecified Influenza 8040-8740 Immunization Today Z23 - Encounter for immunization Hemoglobin A1c Today E78.5 - Hyperlipidemia, unspecified, Z00.00 - Encounter for general adult medical examination without abnormal findings Vitamin B12 and Folate Today E78.5 - Hyperlipidemia, unspecified, Z00.00 - Encounter for general adult medical examination without abnormal findings Vitamin D 25-OH Total Today E78.5 - Hyperlipidemia, unspecified, Z00.00 - Encounter for general adult medical examination without abnormal findings Lipid Panel 6 Months E78.5 - Hyperlipidemia, unspecified Medications: New Fluarix 2310-7024 (PF) (flu vac ts (6mos up)-PF) 0.5 mL IM ONCE 0.5 mL 0RF NS Z23 - Encounter for immunization Patient Instructions: Health screenings for men You should visit your health care provider regularly, even if you feel healthy. The purpose of these visits is to: Screen for medical issues Assess your risk for future medical problems Encourage a healthy lifestyle Update vaccinations and other preventive care services Help you get to know your provider in case of an illness Information Even if you feel fine, you should still see your provider for regular checkups. These visits can help you avoid problems in the future. For example, the only way to find out if you have high blood pressure is to have it checked regularly. High blood sugar and high cholesterol level also may not have any symptoms in the early stages. Simple blood tests can check for these conditions. There are specific times when you should see your provider or receive specific health screenings. The [place] Preventive Services Task Force publishes a list of recommended screenings. Below are screening guidelines for men ages 40 to 64. BLOOD PRESSURE SCREENING Have your blood pressure checked at least once every year. Watch for blood pressure screenings in your area. Ask your provider if you can stop in to have your blood pressure checked. Ask your provider if you need your blood pressure checked more often if: You have diabetes, heart disease, kidney problems, or are overweight or have certain other health conditions You have a first-degree relative with high blood pressure You are Black Your blood pressure top number is from 120 to 129 mm Hg, or the bottom number is from 70 to 79 mm Hg If the top number is 130 mm Hg or greater or the bottom number is 80 mm Hg or greater, this is considered stage 1 hypertension. Schedule an appointment with your provider to learn how you can lower your blood pressure. Effects of age on blood pressure CHOLESTEROL SCREENING Cholesterol screening should begin at age 35 for men with no known risk factors for coronary heart disease. Repeat cholesterol screening should take place: Every 5 years for men with normal cholesterol levels More often if changes occur in lifestyle (including weight gain and diet) More often if you have diabetes, heart disease, kidney problems, or certain other conditions COLORECTAL CANCER SCREENING If you are under age 45, talk to your provider about getting screened. You may need to be screened if you have a strong family history of colon cancer or polyps. Screening may also be considered if you have risk factors such as a history of inflammatory bowel disease or polyps. If you are age 45 to 75, you should be screened for colorectal cancer. There are several screening tests available: A stool-based fecal occult blood (gFOBT) or fecal immunochemical test (FIT) every year A stool sDNA test every 1 to 3 years Flexible sigmoidoscopy every 5 years or every 10 years with stool testing FIT done every year CT colonography (virtual colonoscopy) every 5 years Colonoscopy every 10 years You may need a colonoscopy more often if you have risk factors for colorectal cancer, such as: Ulcerative colitis A personal or family history of colorectal cancer A history of growths in your colon called adenomatous polyps DENTAL EXAM Go to the dentist once or twice every year for an exam and cleaning. Your dentist will evaluate if you have a need for more frequent visits. DIABETES SCREENING All adults who do not have risk factors for diabetes should be screened starting at age 35 and repeated every 3 years. If you have other risk factors for diabetes, such as a first degree relative with diabetes, overweight or obesity, high blood pressure, prediabetes, or a history of heart disease, you may be tested more often. If you are overweight and have other risk factors, such as high blood pressure a nd are planning to become , screening is recommended. EYE EXAM Have an eye exam every 2 to 4 years ages 40 to 54 and every 1 to 3 years ages 55 to 64. Your provider may recommend more frequent eye exams if you have vision problems or glaucoma risk. Have an eye exam that includes an examination of your retina (back of your eye) at least every year if you have diabetes. IMMUNIZATIONS Commonly needed vaccines include: Flu shot: get one every year COVID-19 vaccine: ask your provider what is best for you Tetanus-diphtheria and acellular pertussis (Tdap) vaccine: have as one of your tetanus-diphtheria vaccines if you did not receive it as an adolescent Tetanus-diphtheria: have a booster (or Tdap) every 10 years Varicella vaccine: receive 2 doses if you never had chickenpox or the varicella vaccine and were born in 1979 or after Hepatitis B vaccine: receive 2, 3, or 4 doses, depending on your exact circumstances, if you did not receive these as a child or adolescent, until age 59 Shingles (herpes zoster) vaccine: at or after age 50 Ask your provider if you should receive other immunizations, especially if you have certain medical conditions, such as diabetes or are at increased risk for some diseases such as pneumonia. INFECTIOUS DISEASE SCREENING Screening for hepatitis C: all adults ages 18 to 79 should get a one-time test for hepatitis C. Screening for human immunodeficiency virus (HIV): all people ages 15 to 65 should get a one-time test for HIV. Depending on your lifestyle and medical history, you may need to be screened for infections such as syphilis, chlamydia, and other infections. LUNG CANCER SCREENING You should have an annual screening for lung cancer with low-dose computed tomography (LDCT) if: You are age 50 to 80 years AND You have a 20 pack-year smoking history AND You currently smoke or have quit within the past 15 years OSTEOPOROSIS SCREENING If you are age 50 to 64 and have risk factors for osteoporosis, you should discuss screening with your provider. Risk factors can include long-term steroid use, low body weight, smoking, heavy alcohol use, having a fracture after age 50, or a family history of hip fracture or osteoporosis. Osteoporosis PHYSICAL EXAM All adults should visit their provider from time to time, even if they are healthy. The purpose of these visits is to: Screen for diseases Assess risk of future medical problems Encourage a healthy lifestyle Update vaccinations and other preventive care services Maintain a relationship with a provider in case of an illness Your height, weight, and body mass index (BMI) should be checked at every exam. During your exam, your provider may ask you about: Depression and anxiety Diet and exercise Alcohol and tobacco use Safety, such as use of seat belts and smoke detectors Your medicines and risk for interactions PROSTATE CANCER SCREENING If you're 55 through 69 years old, before having the test, talk to your provider about the pros and cons of having a PSA test. Ask about: Whether screening decreases your chance of dying from prostate cancer. Whether there is any harm from prostate cancer screening, such as side effects from testing or overtreatment of cancer when discovered. Whether you have a higher risk of prostate cancer than others. If you are age 55 or younger, screening is not generally recommended. You should talk with your provider about if you have a higher risk for prostate cancer. Risk factors include: Having a family history of prostate cancer (especially a brother or father) Being If you choose to be tested, the PSA blood test is repeated over time (yearly or less often), though the best frequency is not known. Prostate examinations are no longer routinely done on men with no symptoms. Prostate cancer SKIN EXAM Your provider may check your skin for signs of skin cancer, especially if you're at high risk. People at high risk include those who have had skin cancer before, have close relatives with skin cancer, or have a weakened immune system. TESTICULAR EXAM The [place] Preventive Services Task Force (USPSTF) now recommends against performing testicular self-exams. Doing testicular self-exams has been shown to have little to no benefit.
[2024-12-26 13:15] VITALS: BP 138/80; PULSE 76; RESP 14; TEMP 36.3; O2SAT 98; BMI 29.3
--- OUTSIDE RECORDS SUMMARY | 2024-12-26 16:41 | XMS_ITS | Clinical Summary ---
Author Organization [facility] Address [address] [address] Phone Care Team Providers Care Foundry Manager Name Role Phone Pcp, Unknown Primary Care Provider Unavailabl e Allergies No known active allergies Medications rosuvastatin 5 mg CpSP Take by mouth. Active Active Problems No known active problems Immunizations Immunization Administration Dates Next Due Influenza Quadrivalent Preservative Free IM 12/01 Tdap 06/19/2024 Social History Tobacco Use Types Packs/Day Years Used Date Smoking Tobacco: Never Assessed Education Answer Date Recorded Are you interested in more education? Not on grant e 06/19/2024 Are you concerned about learning? Not on file 06/19/2024 No 06/19/2024 No 06/19/2024 Digital Access Answer Date Recorded No 06/19/2024 No 06/19/2024 Reliable internet access at home? Not on file 06/19/2024 Device with a working camera? Not on file Sex and Gender Information Value Date Recorded Sex Assigned at Not on file Legal Sex Male 3:29 PM EDT Gender Identity Not on file Sexual Orientation Not on file Last Filed Vital Signs Vital Sign Reading Time Taken Comments Blood Pressure 130/90 06/19/2024 3:46 PM EDT Pulse 80 06/19/2024 3:45 PM EDT Temperature 36.9 C (98.5 F) 06/19/2024 3:45 PM EDT Respiratory Rate 16 06/19/2024 3:45 PM EDT Oxygen Saturation 96% 06/19/2024 3:45 PM EDT Inhaled Oxygen Concentration - - Weight 93 kg (205 lb) 06/19/2024 3:45 PM EDT Height 177.8 cm (5' 10 ) 06/19/2024 3:45 PM EDT Body Mass Index 29.41 06/19/2024 3:45 PM EDT Plan of Treatment Health Maintenance Due Date Last Done Comments LIPID PANEL 1985 DEPRESSION SCREENING 1998 SMOKING Hx and SMOKELESS TOB ACCO SCREENING 1999 HEPATITIS C SCREENING 01/12/2004 HIV ONE-TIME SCREENING (18-6 5 YEARS) 01/12/2004 SCREENING FOR DIABETES 2021 INFLUENZA VACCINE (#1) 2024 12/22/2022 COVID-19 VACCINE (2024-2 6 season) 2024 Adult Td,Tdap Booster 06/19/2034 06/19/2024 HEPATITIS A VACCINES Aged Out No long er eligible based on patient's age to complete this topic HIB VACCINES Aged Out No longer eligi ble based on patient's age to complete this topic MENINGOCOCCAL VACCINES (ACWY) Aged Out No longer eligible based on patient's age to complete this topic MENINGOCOCCAL VACCINES (B) Aged Out N o longer eligible based on patient's age to complete this topic PNEUMOCOCCAL VACCINES (0-49 years) Aged Out No longer eligible based on patient's age to complete this topic Medical Devices Not on file Insurance [address] [address] [facility] [place] [address] [place] [address] [place] [address] [place] [address] POS [facility] [employer] HMO POS EPO Care Teams Foundry Manager Relationship Specialty Start Date End Date Pcp, Unknown PCP - General 06/19/24 Additional Source Comments The information contained in this document represents components of the legal health record. It is not the complete legal health record.[facility]
== END 2024-12-26 14:08 | disposition home or self-care (01) ==
LOC: HO.HMCFM 13:07
PROVIDERS: PCP Family Medicine; Visit Provider Nurse Practitioner Family
DX: Z00.00 Encounter for general adult medical examination without abnormal findings (principal); E78.2 Mixed hyperlipidemia; I82.401 Acute embolism and thrombosis of unspecified deep veins of right lower extremity; Z82.49 Family history of ischemic heart disease and other diseases of the circulatory system; Z23 Encounter for immunization; K59.09 Other constipation; Z80.0 Family history of malignant neoplasm of digestive organs

== ENCOUNTER 2024-12-26 13:06 | Outpatient (REF) | payer OTHER, SELFPAY ==
[2024-12-26 18:06] LABS: Hematocrit 44.4 % (42.0-52.0); Hemoglobin 14.8 g/dl (14.0-18.0); Mean Corpuscular HGB Conc 33.3 g/dl (31.0-36.0); Mean Corpuscular Hemoglobin 28.1 pg (27.0-33.0); Mean Corpuscular Volume 84.3 fL (80.0-98.0); NRBC Abs Auto 0.000 X10*3/uL (0.0-0.012); NRBC Pct Auto 0.0 /100WBC (0.0-0.2); Platelet Count 250 X10*3/uL (160-400); Red Blood Count 5.27 X10*6/uL (4.60-5.80); White Blood Count 4.3 X10*3/uL (4.8-10.8)
[2024-12-26 18:37] LABS: Alanine Aminotransferase 41 U/L (0-40); Albumin Level 5.0 g/dL (3.5-5.0); Alkaline Phosphatase 74 U/L (39-117); Anion Gap 13 (12-20); Aspartate Amino Transferase 29 U/L (5-37); Blood Urea Nitrogen 18 mg/dL (9-16); Calcium 9.2 mg/dL (8.4-10.2); Carbon Dioxide 28 mmol/L (22-29); Chloride 106 mmol/L (96-108); Cholesterol 152 mg/dL (<200); Estimated Glomerular Filt Rate > 60; HDL Cholesterol 33 mg/dL (>40); Potassium 4.0 mmol/L (3.3-5.1); Sodium 143 mmol/L (135-145); Total Protein 7.7 g/dL (6.5-8.0); Triglycerides 89 mg/dL (<150)
[2024-12-26 19:00] LABS: Folate 12.6 ng/mL (> or = 4.0); Vitamin B12 430 pg/mL (200-900)
== END 2024-12-26 13:07 | disposition home or self-care (01) ==
LOC: HO.WFDLDS 13:06
PROVIDERS: PCP Family Medicine; Visit Provider Nurse Practitioner Family
DX: Z00.00 Encounter for general adult medical examination without abnormal findings (principal); E55.9 Vitamin D deficiency, unspecified; E78.2 Mixed hyperlipidemia; I82.401 Acute embolism and thrombosis of unspecified deep veins of right lower extremity; K59.09 Other constipation; Z80.0 Family history of malignant neoplasm of digestive organs; Z76.89 Persons encountering health services in other specified circumstances; Z13.1 Encounter for screening for diabetes mellitus; Z23 Encounter for immunization; Z82.49 Family history of ischemic heart disease and other diseases of the circulatory system
CPT/HCPCS: 36415; 80053; 80061; 82306; 82570; 82607; 82746; 83036; 84443; 85027; 90471; 90656; 96127

== ENCOUNTER → 2025-02-02 10:49 | Outpatient (REF) | payer OTHER, SELFPAY ==
--- NOTE | 2025-02-02 10:52 | CA_ITS ---
Transthoracic Echocardiogram Patient (Last, First, Middle): Jose G Hameed, Gender: Male Date of : 1985 Age: 40 Procedure Date: 02/02/2025 Procedure Type: Transthoracic Echocardiogram Location: OP Height: 177.8 cm Weight: 92.99 kg BSA: 2.11 m2 Heart Rate: bpm BP: 124 / 86 mmHg Ship Pilot Dispatcher: TERA Referring MD: Kassidy Garcia [facility]- Symptoms: Z82.49 - Family history of ischemic heart disease and other diseases of ... Study Quality: Adequate with contrast ECG Rhythm: Sinus Conclusions: - The left ventricular systolic function is normal. The calculated ejection fraction is 57% by biplane method. - No obvious valvular pathology seen on this study. Findings Procedure Information Contrast agent, definity, is being given per protocol without apparent complications. Left Ventricle Normal left ventricular cavity size. There is normal left ventricular wall thickness. The left ventricular systolic function is normal. The calculated ejection fraction is 57% by biplane method. There is no evidence of regional wall motion abnormalities. Diastolic function is normal for age. Right Ventricle Mildly increased right ventricular cavity size. There is normal right ventricular systolic function. Atria Both atria are normal in size. Aortic Valve There is a normal trileaflet aortic valve. There is no aortic valve stenosis. There is no aortic valve regurgitation. Mitral Valve The mitral valve appears normal. There is no mitral valve regurgitation. There is no mitral valve stenosis. Pulmonic Valve The pulmonic valve is likely normal. Tricuspid Valve There is trace tricuspid valve regurgitation. There is no evidence of pulmonary hypertension. Great Vessels The asc aorta and aortic arch are normal in size. Venous The inferior vena cava is normal in size and collapses greater than 50% with inspiration. Pericardium/Pleural There is no evidence of pericardial effusion. Prior Study Comparison No prior study available for comparison. Recommendations, Care & Conclusions No obvious valvular pathology seen on this study. Measurements 2D Linear Measurements IVSd: 0.99 0.6-0.9/0.6-1.0 cm LVIDd: 5.14 3.9-5.3/4.2-5.9 cm LVIDd Index: 2.44 2.4-3.2/2.2-3.1 cm/m2 LVIDs: 3.33 2.0-3.6 cm LVPWd: 1.04 0.7-1.1 cm LA Diam: 3.80 2.7-3.8/3.0-4.0 cm LAIDs Index: 1.80 1.5-2.3 cm/m2 LV Mass: 241.96 67-162/88-224 g LV Mass Index: 114.67 43-95/49-115 g/m2 LVOT Diam: 2.30 3.0+(-)1.3 cm 2D Systolic Function EF 4C: 62.20 >55% EF 2C: 57.50 >55% EF BiP: 57.30 >55% Mitral Valve MV Pk E: 0.69 MV PK A: 0.62 MV Decel Time: 277.00 E/A: 1.10 E'Lateral: 12.90 E'Medial: 7.07 E/E' Med: 9.80 E/E' Lat: 5.30 PHT: 81.00 MVA PHT: 2.72 Decel Pinal: 2.49 Aortic Valve AoV Pk Enrique: 1.36 AoV Mn Enrique: 0.97 AoV VTI: 0.27 AoV Pk Grad: 7.00 Aov Mn Grad: 4.00 APARNA Cont.VTI: 3.40 LVOT LVOT Pk Enrique: 1.17 LVOT Mn Enrique: 0.84 LVOT VTI: 0.22 LVOT Pk Grad: 5.00 LVOT Mn Grad: 3.00 LVOT Diam: 2.30 LVOT Area: 4.15 Diastolic Function MV Pk E: 0.69 MV Pk A: 0.62 E/A: 1.10 E'Medial: 7.07 E/E' Med: 9.80 E' Laterial: 12.90 E/E' Lat: 5.30 Right Ventricle TAPSE (mm): 24.40 TVS' Enrique: 12.30 Tricuspid Valve TR Pk Enrique: 1.59 TR Pk Grad: 10.00 RA Press: 3.00 RVSP: 13.00 Great Vessels Aorta Sinus of Valsalva: 3.67 2.0-3.[address] Ridge: 2.48 1.7-3.4 cm Ao Asc: 3.10 2.1-3.4 cm Ao Arch: 2.80 Pulmonary Veins Pulm Vein S/D 0.90 Updated in Other Vendor System with Status of Final Tello Ch MD electronically signed on 02/03/2025 4:34:41 PM with status of Final
== END ==
LOC: HO.CARD 10:49
PROVIDERS: PCP Family Medicine; Visit Provider Nurse Practitioner Family
DX: Z82.49 Family history of ischemic heart disease and other diseases of the circulatory system (principal); E78.5 Hyperlipidemia, unspecified
CPT/HCPCS: 93306; Q9957

== ENCOUNTER → 2025-02-02 10:52 | Outpatient (BNV) | payer OTHER, SELFPAY | PROVIDERS: PCP Family Medicine; Visit Provider Internal Medicine | DX: I51.7 Cardiomegaly (principal); Z82.49 Family history of ischemic heart disease and other diseases of the circulatory system | CPT/HCPCS: 93306 ==